=== PATIENT | male | born 1940 | race Caucasian/White ===

== ENCOUNTER → 2017-10-28 12:59 | Outpatient (CLI) | payer MEDICARE, SELFPAY ==
[2017-10-28 14:51] LABS: PSA,Total- Diagnostic 3.06 ng/mL (0.0-4.0)
== END ==
PROVIDERS: Family Provider Family Medicine; PCP Family Medicine; Visit Provider Urology
DX: R97.20 Elevated prostate specific antigen [PSA] (principal)
CPT/HCPCS: 36415; 84153

== ENCOUNTER → 2018-05-03 09:49 | Outpatient (CLI) | payer MEDICARE, SELFPAY ==
[2018-05-03 11:30] LABS: PSA,Total- Diagnostic 3.32 ng/mL (0.0-4.0)
== END ==
PROVIDERS: Family Provider Family Medicine; PCP Family Medicine; Referring Provider Urology; Visit Provider Urology
DX: R97.20 Elevated prostate specific antigen [PSA] (principal)
CPT/HCPCS: 36415; 84153

== ENCOUNTER → 2018-05-31 07:25 | Outpatient (CLI) | payer MEDICARE, SELFPAY ==
--- NOTE | 2018-05-31 08:00 | PET_ITS ---
EXAMINATION: FDG PET CT BRAIN INDICATIONS: A 77-year-old male with reported history of apparent cognitive impairment-memory loss. COMPARISON EXAMINATION: None available. TECHNIQUE: Following the intravenous administration of 11.43 mCi of F-18 deoxyglucose via the left antecubital fossa, multiplanar image acquisitions of the brain obtained at 60 minutes post radiopharmaceutical administration reveal: SERUM GLUCOSE LEVEL: 135 mg/dl. HEIGHT: 65 inches. WEIGHT: 175 lbs FINDINGS: 1. Qualitative, visual analysis demonstrates relatively symmetric, preserved glucose concentration in the bilateral frontal, temporal, occipital and parietal lobes of the cerebral cortex. There is symmetric visualized on the basal ganglia and cerebellar hemispheres. 2. Quantitative analysis utilizing [employer] software demonstrates altered glucose concentration defined in the right and left temporal pole with Z-scores of -2.54 and -1.98 respectively. PET/PET Brain Metabolic Eval IMPRESSION: 1. 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 (Judith, Molecular Imaging and Biology 4:239, 2004). Electronic Signature Jerrod Robison D.O. Electronically Signed: Jerrod Robison DO at 23:06 EST Tel , Service support ,
--- OUTSIDE RECORDS SUMMARY | 2018-07-24 06:00 | XMS RPT_ITS ---
:1940 External Reference #:[id number] Author Organization OHIP Support Name Relationship Address Phone FRANCESCA PATIÑO [address] + [place] [address] KELLI UREÑA Unavailable Unavailable + R Unavailable Unavailable Unavailable FRANCESCA PATIÑO Unavailable [address] + [place] [address] KELLI UREÑA Unavailable . + [place] [address] R Unavailable Unavailable Unavailable FRANCESCA PATIÑO Unavailable [address] + [place] [address] KELLI UREÑA Unavailable Unavailable + [place] [address] R Unavailable Unavailable Unavailable FRANCESCA PATIÑO Unavailable Unavailable + MARIPOSA UREÑA Unavailable Unavailable + FRANCESCA PATIÑO Unavailable [address] + [place] [address] KELLI UREÑA Un[address] + [place] [address] R Unavailable Unavailable Unavailable FRANCESCA PATIÑO Unavailable Unavailable + MARIPOSA UREÑA Unavailable Unavailable + FRANCESCA PATIÑO Unavailable Unavailable + MARIPOSA UREÑA Unavailable Unavailable + FRANCESCA PATIÑO Unavailable Unavailable + MARIPOSA UREÑA Unavailable Unavailable + FRANCESCA PATIÑO Unavailable [address] + [place] [address] KE[address]I UREÑA Un[address] [phone] [place] [address] R Unavailable Unavailable Unavailable FRANCESCA PATIÑO Unavailable [address] + [place] [address] KELLI UREÑA Un[address] [phone] [place] [address] R Unavailable Unavailable Unavailable FRANCESCA PATIÑO Unavailable Unavailable + MARIPOSA UREÑA Unavailable Unavailable + FRANCESCA PATIÑO Unavailable Unavailable + MARIPOSA UREÑA Unavailable Unavailable + Care Team Providers Name Role Phone CHU MANJARREZ MD Attending Unavailable CHU MANJARREZ MD Primary Care Unavailable CHU MANJARREZ MD Attending Unavailable CHU MANJARREZ MD Primary Care Unavailable CHU MANJARREZ MD Attending Unavailable CHU MANJARREZ MD Primary Care Unavailable CHU MANJARREZ MD Attending Unavailable CHU MANJARREZ MD Primary Care Unavailable CHU MANJARREZ MD Attending Unavailable CHU MANJARREZ MD Primary Care Unavailable CHU MANJARREZ MD Attending Unavailable CHU MANJARREZ MD Primary Care Unavailable Guicho Patten Attending Unavailable CHU MANJARREZ Primary Care Unavailable SandorGuicho peck Attending Unavailable CHU MANJARREZ Primary Care Unavailable Addi Dangelo Attending Unavailable Oscar Morales Attending Unavailable CHU MANJARREZ Referring Unavailable SandorGuicho peck Attending Unavailable Sandor, Stuart Referring Unavailable CHU MANJARREZ Primary Care Unavailable Chalo Kirkpatrikcnath SDerrell Attending Unavailable Kaya, Darron SDerrell Referring Unavailable CHU MANJARREZ Primary Care Unavailable PROBLEMS PROBLEMS DATE TYPE CONDITION / CODE ATTENDING STATUS SOURCE 05/03/2018 Unknown G47.33 - Obstructive Oscar Morales Active [facility] sleep apnea (adult) Community (pediatric[facility] Hospital G47.33(ICD-10) Repository 05/03/2018 Unknown I51.7 - Cardiomegaly Oscar Morales [facility] / I51.7(ICD-10) [facility] Repository 05/03/2018 Unknown I26.99 - Other Oscar Morales Active [facility] pulmonary embolism [facility] without acute cor Hospital pulmonale / Repository I26.99(ICD-10) 01/14/2018 Admitting Other amnesia / LOKI BEY, Active [facility] Diagnosis R41.3(ICD-10) [facility] Gall[facility] Repository 12/29/2017 Admitting Type 2 diabetes LOKI BEY, Active [facility] Diagnosis mellitus without [facility] D. [facility] complications / Repository E11.9(ICD-10) 09/30/2017 Admitting Mixed hyperlipidemia LOKI BEY, Active [facility] Diagnosis / E78.2(ICD-10) [facility] Raisa. [facility] Repository 09/30/2017 Admitting Essential (primary) LOKI BEY, Active [facility] Diagnosis hypertension / CHU Raisa. [facility] I10(ICD-10) Repository 06/30/2017 Admitting Urinary tract LOKI BEY, Active [facility] Diagnosis infection, site not CHU D. [facility] specified / Repository N39.0(ICD-10) PROCEDURES PROCEDURES No Procedure Records FoundRESULTS RESULTS PET BRAIN METABOLIC Observed: 05/28/2018 Status: F Source: [place] EVAL 1:03 PM [facility] REPOSITORY [facility] Imaging Services [address] [place] [address] PET Brain Metabolic Eval MR#: [id number] Acct: [id number] Name: ANIBAL PATIÑO Rep #: [id number] : 1940 M 77 From: Jerrod Robison DO PCP: Chu Manjarrez MD Status: REG CLI Study: PET Brain Metabolic Eval Date of Exam: 05/31/18 Exam# [id number] Ordering Dr: Darron Kirkpatrick MD EXAMINATION: FDG PET CT BRAIN INDICATIONS: A 77-year-old male with reported history of apparent cognitive impairment-memory loss. COMPARISON EXAMINATION: None available. TECHNIQUE: Following the intravenous administration of 11.43 mCi of F-18 deoxyglucose via the left antecubital fossa, multiplanar image acquisitions of the brain obtained at 60 minutes post radiopharmaceutical administration reveal: SERUM GLUCOSE LEVEL: 135 mg/dl. HEIGHT: 65 inches. WEIGHT: 175 lbs FINDINGS: 1. Qualitative, visual analysis demonstrates relatively symmetric, preserved glucose concentration in the bilateral frontal, temporal, occipital and parietal lobes of the cerebral cortex. There is symmetric visualized on the basal ganglia and cerebellar hemispheres. 2. Quantitative analysis utilizing [employer] software demonstrates altered glucose concentration defined in the right and left temporal pole with Z-scores of -2.54 and -1.98 respectively. PET/PET Brain Metabolic Eval IMPRESSION: 1. 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 (Adela and Sarita, Molecular Imaging and Biology 4:239, 2004). Electronic Signature Jerrod Robison D.O. Electronically Signed: Jerrod Robison DO at 23:06 EST Tel , Service support , CC: Babar Kirkpatrick MD; Chu Manjarrez MD Catering Driver: Signed PULMONARY VISIT REPORT Observed: 05/03/2018 Status: F Source: [place] 10:48 AM [facility] REPOSITORY [facility] [address] [place] [address] OFFICE VISIT Date of Service: 05/03/18 MR#: [id number] Acct: [id number] Name: ANIBAL PATIÑO Rep #: [id number] : 1940 Provider: Oscar Morales MD Age/Sex: 77/M Location: [facility] Status: Signed Assessment AND Plan Problems 1. GARRY (obstructive sleep apnea) G47.33 2. 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 Multiple pulmonary emboli I26.99 Plan Patient appears to be doing well overall. No acute issues leading to a need for a repeat titration at this time. Patient's residual AHI and leak are well controlled. Did stress to the patient the importance of maintaining weight at current level. Patient understands that weight gain can lead to increased CPAP setting requirements. Also reviewed with the patient the signs and symptoms of pulmonary embolism and DVT. Patient voiced understanding. Continue current therapy. Call with any signs or symptoms of DVT/PE Medications New: Discontinued: Plan Detail Follow Up 1 Year (BWA) HPI 1 Y FU: Chief Complaint: Routine follow-up Details: Patient is a 77-year-old male, currently under the care of Dr. Manjarrez, who presents for evaluation secondary to routine follow-up of GARRY. Since last visit, patient denies any ER visits, hospitalizations or prednisone burst. Patient feels subjectively unchanged compared to previous visit. Patient reports he has been compliant with his CPAP therapy. Patient states that he recently had a weekend with a squirrel hunting and his machine broke leading to noncompliance for the weekend. Patient states that he woke up several times overnight, but felt that he was doing okay during the day. Patient states his leak is well controlled. Patient denies any epistaxis, dry mouth or hoarseness complicating current therapy. Patient does take a 57-40-pksmiy nap on a daily basis, but states he does not wear his CPAP with these naps. Patient estimates one episode of nocturia per night. Patient has had a mild increase in weight. Patient states he does attempt to watch his diet. Patient feels his dyspnea on exertion is grossly unchanged compared to previous. Patient does report some dyspnea with walking up hills associated with squirrel hunting. Patient overall feels that his dyspnea on exertion is unchanged compared to previous. Patient denies any bleeding complications such as hemoptysis or melena. Patient is no longer on anticoagulation. Documentation personally reviewed with the patient Compliance report (March 2018): Compliant 93% of days for an average of 8 hours 2 minutes on CPAP 8 cm of water with a residual AHI of 0.4 and well-controlled leak HPI Comments Details: Intake Vital Signs05/03/18 Height 5 ft 5 in 05/03/18 Weight: 80.739 kg Intake Visit Reasons: 1 Y FU American[employer] Teacher Required: No DME Vendor: John Accompanied by: Is patient in pain?: No Allergies ciprofloxacin [From Cipro] Allergy (Verified 05/03/18 08:00) Rash lisinopril Allergy (Verified 05/03/18 08:00) Swelling metronidazole Allergy (Verified 05/03/18 08:00) Rash Penicillins [PCN] Allergy (Verified 05/03/18 08:00) Rash sulfamethoxazole Allergy (Verified 05/03/18 08:00) Rash Medications Toombs 650 mg PO DAILY 09/16/16 [History Confirmed 05/03/18] Amlodipine [Norvasc] 5 mg PO DAILY 09/16/16 [History Confirmed 05/03/18] Glucosamine/Chondroitin A/MSM [Fqciswcyvqc-Rpoibnwdiyq-IUG Tb] 1 ea PO TID 09/16/16 [History Confirmed 05/03/18] Tamsulosin HCl [Flomax] 0.8 mg PO DAILY 09/16/16 [History Confirmed 05/03/18] Turmeric/Turmeric Ext/Pepr Ext [Turmeric Complex 500 mg Cap] 2 ea PO DAILY 09/16/16 [History Confirmed 05/03/18] Ubidecarenone [Coq10] 50 mg PO DAILY 09/16/16 [History Confirmed 05/03/18] Acetaminophen [Tylenol Tablet] 650 mg PO Q6H PRN PRN #0 tab 09/18/16 [Rx Confirmed 05/03/18] Finasteride [Proscar] 5 mg PO DAILY #30 tab 09/18/16 [Rx Confirmed 05/03/18] omega-3 fatty acids 1,000 mg capsule 1,000 mg PO DAILY 03/03/18 [History Confirmed 05/03/18] aspirin 81 mg tablet,delayed release 81 mg PO DAILY 05/03/18 [History Confirmed 05/03/18] diclofenac 1 % topical gel 2 g TOPICAL ONCE PRN 05/03/18 [History Confirmed 05/03/18] hydrochlorothiazide 25 mg tablet 25 mg PO DAILY 05/03/18 [History Confirmed 05/03/18] vitamin B complex tablet 1 tab PO DAILY 05/03/18 [History Confirmed 05/03/18] PFSH Medical History Sleep apnea (Acute) hx melanoma (Acute) Surgical History Varicocele (Acute) history of left hand surgery (Acute) history of right thumb surgery (Acute) history or right knee scrape (Acute) Family History Mother Cancer Social History Smoking Status: Former smoker second hand exposure: No alcohol intake: never substance use type: does not use what type of physical activity do you participate in: none Review of Systems Const CONSTITUTIONAL: Positive fatigue; negative anorexia, body ache, chills, daytime sleepiness, fever(s), night sweats, oral thrush, stops breathing during sleep, weight loss, sleeping in chair, weight loss, weight gain, frequent colds, seasonal allergies, other, headache(s) or orthopnea EETM Ear Nose Throat Mouth: Positive hearing normal and nasal discharge; negative hard of hearing, hoarseness, dry mouth in morning, change in vision, itchy eyes, eye pain, swallowing Difficulty, ear pain, nose bleed, headache(s), mouth pain, nasal congestion, post nasal drip, sinus pain, sinus pressure, sore throat or other Cardio Cardiovascular: Positive edema; negative chest pain, chest pain at rest, chest pain with activity, irregular heart rhythm, shortness of breath when lying down, palpitations, murmur or other Resp Respiratory: Positive as per HPI; negative shortness of breath, pain with cough, wheezing, chest congestion, cough, chest tightness, pain on inspiration, inhalers, increase use of rescue inhalers, snoring, apnea or other Gastro Gastrointestional: Negative bloody stools, change in appetite, difficulty swallowing, reflux, hematemesis, melena stool, loose stool, constipation or other Genitourinary: Positive nocturia; negative blood in urine, pain with urination or other Musc Musculoskeletal: Negative body pain, back pain, neck pain or other Skin/Breast Skin/Breast: Negative dry skin, itching, rash, unusual bruising, breast lump or other Neuro Neurological: Negative restless legs, confusion, weakness or other Psych Psychocological: Negative abnormal sleep pattern, anxiety, thoughts of hurting self/others, hopelessness or other Lymph Lymphatic: Negative easy bleeding, easy bruising, swollen lymph nodes or other Exam Const Constitutional: Positive conversant, cooperative, in no acute respiratory distress, healthy appearing, well developed, well nourished, good hygiene and obese; negative wearing supplemental oxygen, dyspenic or frail appearing Head Head: Positive normocephalic and atraumatic; negative cyanosis of lips/distal nose, frontal sinus tenderness or maxillary sinus tenderness Eyes Eye: Positive clear conjunctiva; negative nystagmus, scleral abnormality or cataract present Ears Ear: Positive hearing normal and external ears normal; negative hard of hearing Nose Nose: Positive external nose normal, septum normal and no nasal discharge; negative epistaxis or nasal polyp Mouth Mouth: Positive oral mucosae normal, no lesions and posterior oropharynx is adequate; negative post nasal drip, malodorous breath or oral thrush present Mallampati Score: II: Mallampati Score Neck Neck: Positive normal visual inspection, full ROM and trachea midline; negative lymphadenopathy or JVD Chest Wall Chest: Positive normal inspection of the chest and symmetric chest movement; negative crepitus or tenderness Resp lung sounds: Positive clear to auscultation, good air exchange, normal expiratory time and normal respiratory effort; negative wheezes, rhonchi, rales, use of accessory muscles, diminished, dullness to percussion or wheeze present on forced exhalation Cardio Cardiac: Positive regular rate, regular rhythm, S1 normal and S2 normal; negative murmur, rub or gallop GI GI: Positive normal to inspection, normal bowel sounds and obese; negative distended, ascites or epigastric tenderness Genitourinary: Positive deferred Musc Musculoskeletal: Positive steady gait; negative using an assistive device for ambulation, kyphosis or scoliosis Skin Pulmonary Skin Exam: Positive intact; negative rash, lesion, ulcers, erythema or dermal atrophy Pulses Pulse: Yes radial pulses present Extremities Extremities: Yes capillary refill normal, No clubbing, No cyanosis, No edema, No stasis dermatitis ALINE hose in place Neuro Neurologic: Yes conversant, Yes no focal neuro deficits, Yes normal concentration, Yes understands questions, Yes cooperative, Yes normal coordination, Yes normal cognition Lymph Lymphatic: No lymphadenopathy Psych Appearance: Positive grossly normal Mental Status: Positive mental status grossly normal Mood: Positive congruent mood Affect: Positive normal affect Coding Level of Care Code Off vis,est,level 3 Diagnoses GARRY (obstructive sleep apnea) G47.33 Right ventricular dilation, 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 chemistry system. Values obtained with different assay methods cannot be used interchangably. When changing PSA assays in the course of monitoring a patient, additional sequential testing should be carried out to confirm baseline values. Performed By: #### L501.9940 #### [facility] [address] [place], [place], [address] .GFR Collected: 04/07/2018 Status: F Source: [facility] 8:24 AM [facility] REPOSITORY TYPE CODE TESTS RESULT OUT OF REFERENCE UNITS RANGE LAB GFRAA(LOINC ml/min/1.73 ) sqm GFR 80 [place] Result Comment: GFR Population mean for , Non- Americans Ages 20-29 = 116 mL/min/1.73 sq.m. Ages 30-39 = 107 mL/min/1.73 sq.m. Ages 40-49 = 99 mL/min/1.73 sq.m. Ages 50-59 = 93 mL/min/1.73 sq.m. Ages 60-69 = 85 mL/min/1.73 sq.m. Ages 70+ = 75 mL/min/1.73 sq.m. Chronic Kidney Disease: Less than 60 mL/min/1.73 square meters End Stage Renal Disease: Less than 15 mL/min/1.73 square meters LAB GFRNO(LOINC) ml/min/1.73sqm GFR Non- 66 Result Comment: GFR Population mean for , Non- Americans Ages 20-29 = 116 mL/min/1.73 sq.m. Ages 30-39 = 107 mL/min/1.73 sq.m. Ages 40-49 = 99 mL/min/1.73 sq.m. Ages 50-59 = 93 mL/min/1.73 sq.m. Ages 60-69 = 85 mL/min/1.73 sq.m. Ages 70+ = 75 mL/min/1.73 sq.m. Chronic Kidney Disease: Less than 60 mL/min/1.73 square meters End Stage Renal Disease: Less than 15 mL/min/1.73 square meters Performed By: #### GFR, LIPID, CMP #### [facility] [address] [place] [address] CMP Collected: 04/07/2018 Status: F Source: [facility] 8:24 AM [facility] REPOSITORY TYPE CODE TESTS RESULT OUT OF REFERENCE UNITS RANGE LAB GLU(LOINC) 83-110 mg/dL Glucose High Level 129 LAB NA(LOINC) 136-145 mmol/L Sodium Level 139 LAB K(LOINC) 3.5-5.1 mmol/L Potassium Level 3.6 LAB CL(LOINC) 98-107 mmol/L Chloride 100 LAB CO2(LOINC) 23-31 mmol/L CO2 High 34 LAB EBAL(LOINC mEq/L ) Electrolyte Balance 5.0 LAB BUN(LOINC) 7-18 mg/dL BUN 14 LAB CRE(LOINC) 0.70-1.30 mg/dL Creatinine Lvl (s) 1.09 LAB BC(LOINC) 7-27 ratio BUN/Creatinine 13 Ratio LAB CA(LOINC) 8.4-10.2 mg/dL Calcium Lvl 9.2 LAB PROT(LOINC 6.4-8.2 G/dL ) Total Protein 6.7 LAB ALB(LOINC) 3.4-4.8 G/dL Albumin Level 3.7 LAB GLB(LOINC) G/dL Globulin 3.0 LAB AG(LOINC) 1.1-2.5 ratio A/G Ratio 1.2 LAB BILT(LOINC 0.2-1.0 mg/dL ) Bili Total 0.7 LAB AP(LOINC) 40-135 U/L Alk Phos 68 LAB AST(LOINC) 10-40 U/L AST/SGOT 17 LAB ALT(LOINC) 10-35 U/L ALT/SGPT High 37 Performed By: #### GFR, LIPID, CMP #### [place] [address] LIPID Collected: 04/07/2018 Status: F Source: [facility] 8:24 AM [facility] REPOS[facility] TYPE CODE TESTS RESULT OUT OF REFERENCE UNITS RANGE LAB CHOL(LOINC 0-200 mg/dL ) Cholesterol High 229 Result Comment: Cholesterol Reference Interval: Less than 200 Desirable 200-239 Borderline high risk 240 and above High risk LAB TRIG(LOINC) 0-150 mg/dL Triglycerides High 194 Result Comment: Triglyceride Reference Interval: Less than 150 Normal 150-199 Borderline high risk 200-499 High risk 500 or higher Very high risk LAB HD(LOINC) 40-60 mg/dL HDL Cholesterol 40 LAB LDL(LOINC) 0-130 mg/dL LDL High Cholesterol 150 Performed By: #### GFR, LIPID, CMP #### [address] [place], [place] [address] CT HEAD OR BRAIN W/O Observed: 02/09/2018 Status: F Source: [facility] 10:00 AM [facility] REPOSITORY ORIGINAL CT HEAD OR BRAIN W/O CONTRAST CLINICAL STATEMENT: MEMORY LOSS. TECHNIQUE: Axial CT images from skull base to vertex without IV contrast. This exam was performed according to our departmental dose optimization program, and includes the following measures where appli cable: automated exposure control, adjustment of the mAs and/or kVp according to patient size and/or exam, and an iterative reconstruction algorithm. COMPARISON: MRI brain 08/21/2016 FINDINGS: There is no intracranial hemorrhage, mass, mass effect, or abnormal extra-axial fluid collection. No CT evidence for acute territorial infarct. Scattered foci of white matter hypoattenuation are noted in the cerebral white matter, nonspecific but compatible with mild-moderate chronic microvascular angiopathy. The density in the larger dural rita ous sinuses is grossly normal. Atherosclerotic calcifications are present in the cavernous carotid arteries bilaterally. There is proportionate enlargement of the ventricular system and cortical sulci, compatible with mild parenchymal volume loss. The skull base and calvarium demonstrate no abnormality. The included paranasal sinuses and mastoid air cells are clear. IMPRESSION: No acute intracranial abnormality. Mild brain parenchymal volume loss with mild to moderate chronic microvascular angiopathy. I have personally reviewed the images of this examination and agree with the resident's findings and interpretation. Interpreted By: Duke Hidalgo MD Preliminary Report By: Maciel Rothman MD Electronically Signed By: Duke Hidalgo MD Dictated Date: 02/09/2018 10:37:08 AM Prelim Date: 02/09/2018 11:42:38 AM Sign Date: 02/09/2018 12:55:15 PM TSH Collected: 01/14/2018 Status: F Source: [facility] 8:59 AM [facility] REPOSITORY TYPE CODE TESTS RESULT OUT OF RANGE REFERENCE UNITS LAB TSH(LOINC) 0.27-4.20 mcIU/mL TSH 2.60 Performed By: #### TSH #### [place] [id number] [place], [place] [address] #### B12, TESTO #### [address] [address] TESTO Collected: 01/14/2018 Status: F Source: [facility] 8:59 AM [facility] REPOSITORY TYPE CODE TESTS RESULT OUT OF REFERENCE UNITS RANGE LAB TESTO(LOIN 241.0-827.0 ng/dL C) Testosterone Lvl 372.9 Performed By: #### TSH #### [facility] [address] [place], [place] [address] #### B12, TESTO #### [facility] [address] [place] [address] B12 Collected: 01/14/2018 Status: F Source: [facility] 8:59 AM [facility] REPOSITORY TYPE CODE TESTS RESULT OUT OF REFERENCE UNITS RANGE LAB B12(LOINC) 211-911 pg/mL Vitamin B12 424 Lvl Performed By: #### TSH #### [place] [address] [place], [place] [address] #### B12, TESTO #### [facility] [address] [place] [address] CMP Collected: 12/29/2017 Status: F Source: [facility] 9:10 AM [facility] REPOSITORY TYPE CODE TESTS RESULT OUT OF REFERENCE UNITS RANGE LAB GLU(LOINC) 83-110 mg/dL Glucose High Level 134 LAB NA(LOINC) 136-146 mEq/L Sodium Level 142 LAB K(LOINC) 3.5-5.1 mEq/L Potassium Level 4.4 LAB CL(LOINC) 98-107 mEq/L Chloride 100 LAB CO2(LOINC) 23-31 mEq/L CO2 High 33 LAB EBAL(LOINC mEq/L ) Electrolyte Balance 9.0 LAB BUN(LOINC) 7.0-18.0 mg/dL BUN 11.6 LAB CRE(LOINC) 0.6-1.2 mg/dL Creatinine Lvl (s) 0.9 LAB BC(LOINC) 7-27 ratio BUN/Creatinine 13 Ratio LAB CA(LOINC) 8.4-10.2 mg/dL Calcium Lvl 9.6 LAB PROT(LOINC 6.0-8.3 G/dL ) Total Protein 6.9 LAB ALB(LOINC) 3.4-4.8 G/dL Albumin Level 4.5 LAB GLB(LOINC) G/dL Globulin 2.4 LAB AG(LOINC) 1.1-2.5 ratio A/G Ratio 1.9 LAB BILT(LOINC 0.2-1.0 mg/dL ) Bili Total 0.5 LAB AP(LOINC) 40-135 IU/L Alk Phos 77 LAB AST(LOINC) 10-40 IU/L AST/SGOT 17 LAB ALT(LOINC) 10-35 IU/L ALT/SGPT 21 Performed By: #### CMP, GFR #### [address] [address] .GFR Collected: 12/29/2017 Status: F Source: [facility] [employer] 9:10 AM [facility] REPOSITORY TYPE CODE TESTS RESULT OUT OF REFERENCE UNITS RANGE LAB GFRAA(LOINC ml/min/1.73 ) sqm GFR >60 Trin[place] Result Comment: GFR Population mean for , Non- Americans Ages 20-29 = 116 mL/min/1.73 sq.m. Ages 30-39 = 107 mL/min/1.73 sq.m. Ages 40-49 = 99 mL/min/1.73 sq.m. Ages 50-59 = 93 mL/min/1.73 sq.m. Ages 60-69 = 85 mL/min/1.73 sq.m. Ages 70+ = 75 mL/min/1.73 sq.m. Chronic Kidney Disease: Less than 60 mL/min/1.73 square meters End Stage Renal Disease: Less than 15 mL/min/1.73 square meters LAB GFRNO(LOINC) ml/min/1.73sqm GFR Non- >60 Result Comment: GFR Population mean for , Non- Americans Ages 20-29 = 116 mL/min/1.73 sq.m. Ages 30-39 = 107 mL/min/1.73 sq.m. Ages 40-49 = 99 mL/min/1.73 sq.m. Ages 50-59 = 93 mL/min/1.73 sq.m. Ages 60-69 = 85 mL/min/1.73 sq.m. Ages 70+ = 75 mL/min/1.73 sq.m. Chronic Kidney Disease: Less than 60 mL/min/1.73 square meters End Stage Renal Disease: Less than 15 mL/min/1.73 square meters Performed By: #### CMP, GFR #### [address] [address] PSA,TOTAL- DIAGNOSTIC Collected: 10/28/2017 Status: F Source: [place] 1:07 PM [facility] REPOSITORY TYPE CODE TESTS RESULT OUT OF RANGE REFERENCE UNITS LAB L501.9940 0.0-4.0 ng/mL PSA, Normal DIAGNOSTIC 3.06 Result Comment: This test was performed using the TPSA assay method for the [employer] chemistry system. Values obtained with different assay methods cannot be used interchangably. When changing PSA assays in the course of monitoring a patient, additional sequential testing should be carried out to confirm baseline values. Performed By: #### L501.9940 #### [facility] [address] [place], [address] [facility] Collected: 09/30/2017 Status: F Source: [facility] 8:18 AM [facility] REPOSITORY TYPE CODE TESTS RESULT OUT OF REFERENCE UNITS RANGE LAB 1547-9 83-110 mg/dL GLUCOSE High 142 LAB NA(LOINC) 136-146 mEq/L Sodium Level 138 LAB K(LOINC) 3.5-5.1 mEq/L Potassium Level 3.5 LAB CL(LOINC) 98-107 mEq/L Chloride 98 LAB CO2(LOINC) 23-31 mEq/L CO2 31 LAB EBAL(LOINC mEq/L ) Electrolyte Balance 9.0 LAB BUN(LOINC) 7.0-18.0 mg/dL BUN 16.6 LAB CRE(LOINC) 0.6-1.2 mg/dL Creatinine Lvl (s) 1.0 LAB BC(LOINC) 7-27 ratio BUN/Creatinine 17 Ratio LAB CA(LOINC) 8.4-10.2 mg/dL Calcium Lvl 9.4 LAB PROT(LOINC 6.0-8.3 G/dL ) Total Protein 6.4 LAB ALB(LOINC) 3.4-4.8 G/dL Albumin Level 4.1 LAB GLB(LOINC) G/dL Globulin 2.3 LAB AG(LOINC) 1.1-2.5 ratio A/G Ratio 1.8 LAB BILT(LOINC 0.2-1.0 mg/dL ) Bili Total 0.4 LAB AP(LOINC) 40-135 IU/L Alk Phos 62 LAB AST(LOINC) 10-40 IU/L AST/SGOT 20 LAB ALT(LOINC) 10-35 IU/L ALT/SGPT 28 Performed By: #### LIPID, GFR, CMP #### [place] [address] [place], [place] [address] .GFR Collected: 09/30/2017 Status: F Source: [employer] 8:18 AM [facility] REPOSITORY TYPE CODE TESTS RESULT OUT OF REFERENCE UNITS RANGE LAB GFRAA(LOINC ml/min/1.73 ) sqm GFR 87 Trin[place] Result Comment: GFR Population mean for , Non- Americans Ages 20-29 = 116 mL/min/1.73 sq.m. Ages 30-39 = 107 mL/min/1.73 sq.m. Ages 40-49 = 99 mL/min/1.73 sq.m. Ages 50-59 = 93 mL/min/1.73 sq.m. Ages 60-69 = 85 mL/min/1.73 sq.m. Ages 70+ = 75 mL/min/1.73 sq.m. Chronic Kidney Disease: Less than 60 mL/min/1.73 square meters End Stage Renal Disease: Less than 15 mL/min/1.73 square meters LAB GFRNO(LOINC) ml/min/1.73sqm GFR Non- >60 Result Comment: GFR Population mean for , Non- Americans Ages 20-29 = 116 mL/min/1.73 sq.m. Ages 30-39 = 107 mL/min/1.73 sq.m. Ages 40-49 = 99 mL/min/1.73 sq.m. Ages 50-59 = 93 mL/min/1.73 sq.m. Ages 60-69 = 85 mL/min/1.73 sq.m. Ages 70+ = 75 mL/min/1.73 sq.m. Chronic Kidney Disease: Less than 60 mL/min/1.73 square meters End Stage Renal Disease: Less than 15 mL/min/1.73 square meters Performed By: #### LIPID, GFR, CMP #### [place] [address] [address] LIPID Collected: 09/30/2017 Status: F Source: [place] [employer] 8:18 AM [facility] REPOSITORY TYPE CODE TESTS RESULT OUT OF REFERENCE UNITS RANGE LAB CHOL(LOINC 131-200 mg/dL ) Cholesterol High 259 Result Comment: Cholesterol Reference Interval: Less than 200 Desirable 200-239 Borderline high risk 240 and above High risk LAB TRIG(LOINC) 40-150 mg/dL Triglycerides 104 Result Comment: Triglyceride Reference Interval: Less than 150 Normal 150-199 Borderline high risk 200-499 High risk 500 or higher Very high risk LAB HD(LOINC) 35-90 mg/dL HDL Cholesterol 45 Result Comment: HDL Reference Interval: Less than 40 Low - high risk 60 or above Optimal/lowers risk LAB LDL(LOINC) 0-130 mg/dL LDL High Cholesterol 193 Result Comment: LDL is a calculated result and requires a 12-hr fast. LDL Reference Interval: Less than 100 Optimal 100-129 Near or above optimal 130-159 Borderline high risk 160-189 High risk 190 and above Very high risk Performed By: #### LIPID, GFR, CMP #### [address] [address] Observed: 06/30/2017 Status: F Source: [facility] 10:12 AM [facility] REPOSITORY . MICRO - Microbiology PROCEDURE: Urine Culture [*1] SOURCE: Urine BODY SITE: COLLECTED DATE/TIME: 06/30/2017 10:12 EST RECEIVED DATE/TIME: 07/01/2017 16:33 EST START DATE/TIME: 07/01/2017 16:34 EST FREE TEXT SOURCE: FINAL REPORTS Final Report [] Verified Date/Time/Personnel: 07/03/2017 06:57 EST No growth at 48 hours. PRELIMINARY REPORTS Preliminary Report [] Verified Date/Time/Personnel: 07/02/2017 07:30 EST No growth to date Performing Locations *1: This test was performed at: [facility], [address] [place] [address], [address] [place] [address] Performed By: #### CUR #### [place] [address] ALLERGIES ALLERGIES DATE TYPE / CODE NAME / CODE REACTION SEVERITY SOURCE 05/03/2018 Drug Penicillins/ Rash Unknown [facility]160 [id number](R [facility] [address]506(SNOMED XNORM) Repository CT) 05/03/2018 Drug lisinopril/F Swelling Unknown [place]/4160 [id number](RX Hospital [address]2710(SNOMED NORM) Repository CT) 05/03/2018 Drug sulfamethoxa Rash Unknown [facility]/4160 zole/[id number] Hospital [facility](SNOMED 827(RXNORM) Repository CT) 05/03/2018 Drug ciprofloxaci Rash Unknown [facility]/4160 n/[id number] [facility](SNOMED (RXNORM) Repository CT) 05/03/2018 Drug metronidazol Rash Unknown [facility] Allergy/4160 e/[id number] [facility](SNOMED (RXNORM) Repository CT) ENCOUNTERS ENCOUNTERS ADMIT/DISCHARGE ACCOUNT NUMBER ADMITTING ENCOUNTER LOCATION SOURCE CLASS 05/31/2018 [id number] Ambulatory [facility] ding:ONC Repository 05/03/2018/05/03/20 [id number] Ambulatory BMSBuilding: [place] [facility] Repository 05/03/2018 [id number] Ambulatory [facility] ding:LAB Repository 04/07/2018/04/11/20 [id number] Ambulatory [facility] [place] [address] [place] [address] ding:[facility] Repository 03/03/2018 [id number] Ambulatory [facility] Repository 02/09/2018/02/10/20 [id number] Ambulatory [place] [address] [place] [address] ding:RAD [facility] Repository 01/14/2018/01/19/20 [id number] Ambulatory [place] [address] [place] [address] ding:DROP [facility] Repository 12/29/2017/01/03/20 [id number] Ambulatory ROSAL[place] [address] [place] [address] ding:[facility] Repository 10/28/2017 [id number] Ambulatory [facility] ding:LAB.FUT Repository URE 10/19/2017 [id number] Ambulatory [facility] ding:LAB.FUT Repository URE 09/30/2017/10/05/19 [id number] Ambulatory ROSALVA [place] [address] [place] [address] ding:DROP [facility] Repository 06/30/2017/07/04/19 [id number] Ambulatory ROSAL[place] [address] [place] [address] ding:[facility] Repository PAYERS PAYERS ENCOUNTER GUARANTOR PAYER SUBSCRIBER SOURCE 05/31/2018 ANIBAL Schuster Primary ANIBAL [place] [id number] Insurance:[place] HO[place]OB: [facility] [id number] [place] MEDIC[place] Repository [address]Tww: (330) Number: [phone] () [id number] Date: [address] [address]ZQ: 05/31/2018 Secondary NOT GIVENUNK [place] Insurance:SELF PAY [facility] Number: Effective Repository Date:2018-05-28 05/03/2018 ANIBAL Schuster Primary ANIBAL Schuster [place] [id number] Insurance:[place] [facility] HE[facility] SERVICESDOB: [facility] [id number] [facility] [place] MEDICAREPolicy Repository [address]Aei: (330) Number: [phone] () [id number] Date: [address] [address]KO: 05/03/2018 Secondary NOT GIVENUNK [place] Insurance:SELF PAY [facility] Number: Effective Repository Date:2018-03-03 05/03/2018 ANIBAL Schuster Primary ANIBAL Schuster [place] [id number] Insurance:[place] HO[place]DOB: [facility] [id number] [facility] [place] MEDICAREPolicy Repository [address]Qxv: (330) Number: [phone] () [id number] Date: PSYCHIATRIC [address], [place] [address]RM: 05/03/2018 Secondary NOT GIVENUNK [place] Insurance:SELF PAY [facility] Number: Effective Repository Date:2018-05-03 04/07/2018 ANIBAL Schuster Primary ANIBAL Schuster [facility] HOOVERDOB: [facility] THP MEDICAREPolicy [id number] Repository [place] Number: [place], [place] [id number] [place], [place] [address]Bqz: (330) Date:2018-04-07 [id number]: (HP) [id number] Name:[id number] NATIONAL ()Tel: ([address] 000-0000 (WP) [place], [place] [address]LF: 03/03/2018 [facility] Primary [id number] Insurance:[facility] [id number] Hospital [place] MEDICAREPolicy Repository [address]Wdk: 330) Number: [phone] () [id number] Date: [address] [address]AW: 03/03/2018 Secondary NOT GIVENUNK [place] Insurance:SELF PAY [facility] Number: Effective Repository Date:2018-03-03 02/09/2018 [facility]ARE HOOVERDOB: [facility] THP MEDICAREPolicy [id number] Repository [place] Number: [place], [place] [id number] [place], [place] [address]Uoh: (330) Date:2018-02-08 [address]Hld: (HP) [id number] Name:[id number] NATIONAL ()Tel: (000) RO[address] 000-0000 (WP) [place], [place] [address]QQ: 01/14/2018 [facility] Insurance:[facility]URECARE HOOVERDOB: [facility] THP MEDICAREPolicy [id number] Repository [place] Number: [place], [place] [id number] [place], [place] [address]Pbo: (330) Date:2018-01-14 [address]Cih: [id number] [phone] (HP)Tel: (999) Name:[id number] NATIONAL () (WP) RO[address] 000-0000 (WP) [place], [place] [address]CC: 12/29/2017 ANIBAL W Primary ANIBAL W [facility]: [facility] HOSOUTHEAST[facility]IOR[facility] HEALTH SERVICESDOB: [facility] MEDICAREPolicy [id number] Repository [facility] Number: [address] [place], [place] [id number] [place], [place] [address]Qbp: (330) Date:2017-12-2953206Uwa: [id number] [phone] (HP)Tel: (999) Name:[id number] [facility] () (WP) RO[address] 000-0000 (WP) [place], [place] [address]AC: 10/28/2017 Anibal Primary Anibal [place] [id number] Insurance:[facility]: [place] [id number] [place] MEDICAREPolicy Repository [address]Cym: (330) Number: [phone] () [id number] Date: [address] [address]HZ: 10/28/2017 Secondary NOT GIVENUNK [place] Insurance:SELF PAY [facility] Number: Effective Repository Date:2017-10-28 10/19/2017 Anibal Primary Anibal [place] [id number] Insurance:[place]OB: [place] [id number] [place] MEDICAREPolicy Repository [address]Mzd: (330) Number: [phone] () [id number] Date: [facility] [address] [place] [address]ON: 10/19/2017 Secondary NOT GIVENUNK [place] Insurance:SELF PAY [facility] Number: Effective Repository Date:2017-10-19 09/30/2017 [facility] Insurance:[facility]URECARE HOOVERDOB: [facility] THP MEDICAREPolicy [id number] Repository [place] Number: [place], [place] [id number] [place], [place] [address]Emt: (330) Date:2017-09-30Tel: [id number] [phone] (HP)Tel: (999) Name:[id number] NATIONAL (HP) (WP) RO[address] 000-0000 (WP) [place], [place] [address]PU: 06/30/2017 [facility]: Insurance:SECURECARE HOOVERDOB: [facility] THP MEDICAREPolicy [id number] Repository [place] Number: [place], [place] [id number] [place], [place] [address]Ywa: (330) Date:2017-06-30Tel: [id number] [phone] (HP)Tel: (999) Name:[id number] NATIONAL (HP) (WP) ROAD [address] 000-0000 (WP) [place], [place] [address]KE:
== END ==
PROVIDERS: Family Provider Family Medicine; PCP Family Medicine; Referring Provider Psychiatry & Neurology Neurology; Visit Provider Psychiatry & Neurology Neurology
DX: R41.3 Other amnesia (principal); Z85.828 Personal history of other malignant neoplasm of skin
CPT/HCPCS: 78608; A9552

== ENCOUNTER 2019-08-05 10:30 | Outpatient (RCR) | payer MEDICARE, SELFPAY ==
[2019-05-16 07:43] VITALS: BMI 29.1
--- NOTE | 2019-07-13 16:47 | HP.PTEVAL_ITS ---
Patient's Visit Information SHERYL PATIÑO II is a 78 year old M referred to Physical Therapy by Chu Sims with a diagnosis of Right Partial Knee Replacement. Date of Evaluation: 07/13/19 Physical Therapist: Yoana Daley DPT - Visit Plan Frequency: 1x/Week Duration: 6 Weeks Plan: 1x with PT next week to re-assess and progress HEP - Subjective Findings: Right partial knee replacement 07/[address] Sims at [facility]. Stayed overnight and then headed home. Single story home with his who is able to help as needed. Daughter is staying with them for now. 2 or 3 stairs with a handrail on both side. No problems getting in/out. Fully I prior to surgery. Patient reports no pain in the knee but does report that he can feel pressure. Worst: 3/10 Agg: bending or fully straightening. Eases: moving the knee into a different position. They gave him a block and put him on twilight. Reports the pain is more streching and tightness. No radiating pain. Has a dressing on it- will call to see how long he can leave it on. Sleep: once or twice- sleeping in bed. 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 Meds: aeroscept, tamsulosin HCL, Ziralto, finasteride, amlodipine, hydrochlorothiside, donepezil HCL, diclofenac sodium, Tramadol and Tylenol, Celebrex- has not needed PRN Narcotic. PMHx: Hx or PE and DVTHTN, prostate issues, early stages dementia. - Objective Posture: good throughout treatment session. Gait: slightly deviated- uses FWW but able to ambulate without. Stairs: asc/desc 8 recip with 1 HR- decreased c ontrol with descent. HR/TR: able with poor balance with TR backwards. SLS: 3 sec then required UE A. Observation: incision under dressing- no s/s of infection. ROM: 0-120 degrees with discomfort at end range. Strength: Ankle: 5/5, Knee: 4+/5, Hip: 4+/5, Core: fair plus- SLR no lag. Flex: HS: moderate, Gastroc: moderate - Goals Goal 1:: Patient will be I with HEP and progression Goal Time Frame: 4-6 Weeks Goal 2:: Patient will asc/desc 8 stairs recip with 1 hR and good control Goal Time Frame: 4-6 Weeks Goal 3:: Andrew will return to all normal ADL's with no pain Goal Time Frame: 4-6 Weeks - Rehabilitation Potential Physical Therapy Diagnosis: Patient presents with hypomobility- he has decreased ROM, strength, flex and muscular endurance s/p partial TKR. Rehabilitation Potential: Good - Anticipated Interventions Patient/Client Instruction: Educate patient on: Benefits of Fitness Program Therapeutic Exercise to Include: Strength training, Endurance training, Balance training, Agility training, Body mechanics, Postural training, Flexibilty training, Gait and locomotor training, Passive ROM, Active ROM, Dynamic Lumbar Stabilization For the Purpose of:: To improve muscle performance and motor function TENS: Yes Cryotherapy (ice pack, ice massage): Yes Thermo therapy (hot pack): Yes Ultrasound (thermal/non thermal): No Thank you for the opportunity to evaluate your patient. For Medicare and Medicare HMO plans, please review the plan of care and approve it. It will need to be FAXED BACK to us at [phone] for Medicare purposes. For Medicare only, by signing this I certify the plan of care. Please let me know if there are questions or concerns regarding this plan of care. Physician Signature: Date:
--- NOTE | 2019-08-05 10:51 | HP.PTDCSUM ---
HP - PT D/C Summary It has been my pleasure to treat SHERYL PATIÑO II under orders from Chu Sims, for the diagnosis of Right Partial Knee Replacement for a total of 4 visit(s). Discharge Date: Please see the following information for a summary of their discharge status. - Subjective Subjective: Patient reports that he is back to all of his normal activities. He is riding a bike daily, doing exercises and going up/down stairs. He feels comfortable doing anything he needs to do- his daughter tries to limit him. - Overall Improvement % Improvement: 95 - Objective Objective/Function: Posture: good throughout treatment session. Gait: no deviation noted Stairs: asc/desc 8 recip with no HR. HR/TR: able no LOB. SLS: 10 sec. Observation: well healed. ROM: 0-125 degrees. Strength: Ankle: 5/5, Knee: 5/5, Hip: 5/5, Core: fair plus- SLR no lag. Flex: HS: moderate, Gastroc: moderate - Goals Goal 1:: Patient will be I with HEP and progression Goal Progress: Goal Met Goal 2:: Patient will asc/desc 8 stairs recip with 1 hR and good control Goal Progress: Goal Met Goal 3:: Patinet will return to all normal ADL's with no pain Goal Progress: Goal Met - Plan Plan: Discharge to I HEP- answered and pt questions - D/C Information If there are questions or concerns regarding this patient's physical therapy, please feel free to call me at [phone]. Thank you for the referral of this patient. Sincerely, Yoana Daley DPT
== END 2019-08-05 19:00 | disposition home or self-care (01) ==
LOC: PT 10:30
PROVIDERS: Family Provider Family Medicine; PCP Family Medicine; Referring Provider Orthopaedic Surgery; Visit Provider Orthopaedic Surgery
DX: M17.11 Unilateral primary osteoarthritis, right knee (principal)
CPT/HCPCS: 97110; 97116; 97162; 97164

== ENCOUNTER → 2020-05-25 09:12 | Outpatient (CLI) | payer MEDICARE, SELFPAY ==
[2019-05-16 07:43] VITALS: BMI 29.1
--- NOTE | 2020-05-25 16:12 | PFTCOMP ---
COMPLETE PULMONARY FUNCTION TEST INTERPRETATION Brief HPI: Patient is a 79 year old male, currently under the care of myself, who presents to [facility] for complete pulmonary function tests secondary to diagnosis of rheumatoid arthritis. Respiratory therapist reports good effort and reproducible results. Interpretation: Forced expiration spirometry shows no large airways obstructive ventilatory defect with an FEV1 of 113% predicted. There is no significant bronchodilator response by strict ATS criteria. Spirograms are of good quality and plateau normally. The respiratory flow volume loop shows a normal pattern. Lung volumes by body plethysmography show a normal total lung capacity at 6.14 L, 118% predicted. All other lung volumes are within normal limits. Diffusion capacity by carbon monoxide is elevated at 159% predicted. The airway resistance is normal. Compared to previous pulmonary function tests from 10/28/2016, there is been a significant improvement in total lung capacity by 15%. Impression: These pulmonary function tests are within normal limits and show improvement compared to previous study.
== END ==
PROVIDERS: PCP Family Medicine; Referring Provider Internal Medicine Critical Care Medicine; Visit Provider Internal Medicine Critical Care Medicine
DX: G47.33 Obstructive sleep apnea (adult) (pediatric) (principal); M06.9 Rheumatoid arthritis, unspecified
CPT/HCPCS: 94060; 94726; 94729

== ENCOUNTER 2020-08-27 06:41 | Outpatient (RCR) | payer MEDICARE, SELFPAY | END 2020-08-27 23:59 | LOC: IMMUN 06:41 | PROVIDERS: PCP Family Medicine; Visit Provider Family Medicine | DX: Z23 Encounter for immunization (principal) | CPT/HCPCS: 0011A; 0012A ==

== ENCOUNTER 2021-01-22 12:12 | Emergency (ER) | payer MEDICARE, SELFPAY ==
[2021-01-22 12:15] VITALS: BP 152/68; PULSE 61; RESP 16; TEMP 37; O2SAT 98; BMI 28.4
--- NOTE | 2021-01-22 12:37 | RAD_ITS ---
STUDY: X-RAY CHEST REASON FOR EXAM: Male, 80 years old. 3 month history of chest pain and arm pain. TECHNIQUE: Single AP portable view of the chest. COMPARISON: Comparison is made with prior study 09/16/2016. FINDINGS: EKG electrodes are seen. Scattered calcified granulomas. There is no demonstrated pleural abnormality. Normal size heart. Normal mediastinum and jeff. Normal visualized pulmonary arteries. There is atherosclerotic tortuosity of the aortic arch and descending thoracic aorta. There are diffuse degenerative changes of the visualized thoracic spine. Normal visualized ribs, clavicles, and shoulders. There is no demonstrated abnormality of the visualized soft tissue structures of the upper abdomen. RAD/Chest 1 View (Portable) IMPRESSION: Scattered calcified granulomas. The lungs are clear. Electronically Signed: Rafa Hart MD at 14:14 EDT , Service support ,
--- NOTE | 2021-01-22 12:37 | EKG12_ITS ---
Test Reason : UPPER EXTREMITY Blood Pressure : / mmHG Vent. Rate : 056 BPM Atrial Rate : 056 BPM P-R Int : 142 ms QRS Dur : 086 ms QT Int : 434 ms P-R-T Axes : 050 -12 037 degrees QTc Int : 418 ms Sinus bradycardia with sinus arrhythmia Possible Inferior infarct , age undetermined Abnormal ECG Confirmed by DOUGLAS BEY, JOSE L ([id number]), deputy editor in chief LESLIE BOYD ([id number]) on 01/24/2021 9:57:12 AM Referred By: HI Confirmed By:JOSE L COLE MD
[2021-01-22 13:03] LABS: Absolute Lymphocyte Count 1.21 X10^3/uL (0.83-4.51); Absolute Neutrophil Count 4.6 X10^3/uL (2.0-7.7); Basophil# 0.07 X10^3/uL; Basophil% 1.1 % (0-1); Eosinophils% 1.5 % (0-5); Hematocrit 45.7 % (40-54); Hemoglobin 15.8 g/dL (13.0-16.5); Lymphocyte # 1.21 X10^3/ul (0.83-4.51); Lymphocyte % 18.3 % (19-41); Mean Corp Hgb Conc 34.6 g/dL (32-36); Mean Corpuscular Hgb 29.6 pg (27.0-32.0); Mean Corpuscular Volume 85.7 fL (80-94); Mean Platelet Vol. 9.1 fl (6.2-12.0); Monocyte% 9.1 % (0-10); NRBC Flagged by Analyzer 0 % (0-5); Neutrophil % 69.5 % (47-70); Platelet Count 242 K/mm3 (150-450); RBC Distribution Width CV 12.8 % (11.6-14.6); RBC Distribution Width SD 39.3 fl (35.1-43.9); Red Blood Count 5.33 M/mm3 (4.6-6.2); White Blood Count 6.6 K/mm3 (4.4-11.0)
[2021-01-22] MEDS: Aspirin 81 MG TAB.CHEW 324 MG PO (13:12)
[2021-01-22 13:22] LABS: Anion Gap 4 (5-15); BUN 16 mg/dL (7-18); Calcium,Total 9.1 mg/dL (8.5-10.1); Chloride 101 mmol/L (98-107); Creatinine, Serum 0.84 mg/dL (0.70-1.30); EST Glomerular Filtration Rate 93 mL/min (>60); Est Glom Filt Rate - Afr Amer 113 mL/min (>60); Estimated Creatinine Clearance 64.35 ml/min; Glucose 186 mg/dL (74-106); Potassium 3.6 mmol/L (3.5-5.1); Sodium Level 137 mmol/L (136-145)
[2021-01-22 14:49] VITALS: BP 154/73; PULSE 46; RESP 10; O2SAT 97
[2021-01-22 15:15] LABS: Troponin-I HS 5.7 pg/mL (3.0-78.5)
--- NOTE | 2021-01-22 16:16 | EDS_ITS ---
HPI History of Present Illness HPI Narrative: Patient presents with left shoulder and left arm pain that has been getting worse over the past 3 weeks. Patient states it began his left shoulder. Patient saw his primary care physician for this. Patient was referred to a different primary care physician for OMT. Patient went there today. They noticed changes on his EKG and referred him to the emergency department. Patient also complains of paresthesias going down his left arm. Patient describes his pain is dull. Patient states the pain is localized to the left shoulder and scapular area. Patient denies any shortness of breath. Patient denies any nausea or vomiting. Chief Complaint: Upper Extremity Injury Detail of Chief Complaint: Left shoulder and arm pain Informant: patient Onset/Context/Timing Onset: Weeks (3) Context: Gradual Onset Timing: Continuous Quality of Pain: Dull Location: Left shoulder Worsened by: Nothing Relieved by: Nothing Associated Symptoms Associated Symptoms: Positive for Parasthesia; Negative for Weakness and Loss of Funtion PFSH PFSH Medical History hx melanoma Hypertension Sleep apnea Home Medications alfalfa 650 mg PO DAILY 09/16/16 [History Last Taken 09/16/16 07:00] amlodipine 5 mg PO DAILY 09/16/16 [History Last Taken 09/16/16 07:00] coenzyme Q10 50 mg PO DAILY 09/16/16 [History Last Taken 09/16/16 07:00] glucosamine [id number] 1 ea PO TID 09/16/16 [History Last Taken 09/16/16 06:00] tamsulosin 0.8 mg PO DAILY 09/16/16 [History Last Taken 09/16/16 07:00] turmeric-turmeric ext-pepper 2 ea PO DAILY 09/16/16 [History Last Taken 09/15/16 17:00] acetaminophen 650 mg PO Q6H PRN PRN #0 tab 09/18/16 [Rx Last Taken Unknown] finasteride 5 mg PO DAILY #30 tab 09/18/16 [Rx Last Taken Unknown] omega-3 fatty acids 1,000 mg capsule 1,000 mg PO DAILY 03/03/18 [History Last Taken Unknown] aspirin 81 mg tablet,delayed release 81 mg PO DAILY 05/03/18 [History Last Taken Unknown] diclofenac sodium 1 % topical gel 2 g TOPICAL ONCE PRN 05/03/18 [History Last Taken Unknown] hydrochlorothiazide 25 mg tablet 25 mg PO DAILY 05/03/18 [History Last Taken Unknown] vitamin B complex 1 tab PO DAILY 05/03/18 [History Last Taken Unknown] Allergy/AdvReac Type Severity Reaction Status Date / Time ciprofloxacin [From Cipro] Allergy Rash Verified 06/05/20 11:12 lisinopril Allergy Swelling Verified 06/05/20 11:12 metronidazole Allergy Rash Verified 06/05/20 11:12 Penicillins [PCN] Allergy Rash Verified 06/05/20 11:12 sulfamethoxazole Allergy Rash Verified 06/05/20 11:12 Family History (Updated 01/22/21 @ 16:[address] Denilson Schaeffer DO) Mother Cancer Father CAD (coronary artery disease) Brother CAD (coronary artery disease) Surgical History history of left hand surgery history of right thumb surgery history or right knee scrape Varicocele Social History Smoking Status: Former smoker second hand exposure: No alcohol intake: never substance use type: does not use what type of physical activity do you participate in: none ROS ROS ED Constitutional Constitutional ED: Denies chills or fever(s) Eyes Eyes: Denies blurry vision or change in vision ENT ENT ED: Denies rhinorrhea or sore throat Cardiovascular Cardiovascular: Reports chest pain; Denies palpitations Respiratory/Chest Respiratory/Chest: Denies cough or dyspnea Gastrointestinal Gastrointestinal: Reports nausea; Denies abdominal pain or vomiting Genitourinary Genitourinary ED: Denies dysuria or hematuria Musculoskeletal Musculoskeletal: Denies back pain or neck pain Integumentary Denies abscess or rash Neurologic Neurologic: Denies headache(s) or weakness Allergic/Immunologic Allergic/Immunologic ED: Denies mouth swelling or urticaria EXAM Physical Exam Const Vital Signs: 01/22/21 12:15 01/22/21 13:06 01/22/21 14:49 Temperature 98.6 F Temperature Source Oral Pulse Rate 61 46 L Respiratory Rate 16 10 L Blood Pressure 152/68 H 154/73 H Blood Pressure Mean 96 100 Pulse Ox 98 97 Oxygen Delivery Method Room Air Room Air Room Air Positive well nourished and well developed General Appearance ED: well developed HEENT Reports moist mucous membranes Neck supple and no JVD Resp normal respiratory effort and clear to auscultation bilaterally Cardio regular rate, regular rhythm and no murmurs GI normal to inspection, nondistended, normoactive bowel sounds and non-tender Palpation: soft Extremity normal to inspection General Extremety ED: Negative for edema or tenderness General Extremity: Negative for edema Neuro oriented x3, CN's II-XII intact bilaterally and no sensory deficits noted Sensorium / Orientation: alert Motor Exam: strength 5/5 throughout Psych mental status grossly normal Skin no rashes or lesions noted MDM MDM MDM Narrative Medical decision making narrative: EKG was obtained. On my interpretation, it showed a normal sinus rhythm with a rate of 56. OR interval, QRS interval, and QTc intervals were all normal. [place] was normal. There are no acute ST or T wave changes. Portable 1 view chest x-ray was obtained. On my interpretation, lung juarez show scattered calcified granulomas. There is normal cardiac silhouette. Bony thorax is normal. There is no acute process noted. Radiologist also interpreted the x-ray and agrees. CBC and basic metabolic profile were obtained and were within normal limits. High-sensitivity troponin was normal at 5.0. 2-hour repeat high-sensitivity troponin was 5.7. Patient was given baby aspirin here. Patient is feeling better on reevaluation. Patient was advised of the findings. Patient was advised that he is low risk for acute cardiac event. Patient was instructed to follow-up with his primary care physician in 5 to 7 days. Patient understood and was agreeable with the plan. All questions were answered. Lab Data Attestation: I reviewed the patient's lab results. Labs: Laboratory Results - last 24 hr 01/22/21 01/22/21 01/22/21 12:52 12:52 14:45 WBC 6.6 RBC 5.33 Hgb 15.8 Hct 45.7 MCV 85.7 MCH 29.6 MCHC 34.6 RDW Std Deviation 39.3 RDW Coeff of [place] 12.8 Plt Count 242 MPV 9.1 Immature Gran % (Auto) 0.500 Neut % (Auto) 69.5 Lymph % (Auto) 18.3 L [place] % (Auto) 9.1 Eos % (Auto) 1.5 Baso % (Auto) 1.1 H Absolute Neuts (auto) 4.6 Absolute Lymphs (auto) 1.21 Nucleated RBC % 0 Sodium 137 Potassium 3.6 Chloride 101 Carbon Dioxide 32.0 Anion Gap 4 L BUN 16 Creatinine 0.84 Estim Creat Clear Calc 64.35 Est GFR (MDRD) Af Amer 113 Est GFR (MDRD) Non-Af 93 BUN/Creatinine Ratio 19.0 Glucose 186 H Calcium 9.1 Troponin I High Sens 5.0 5.7 Radiography Diagnostic Testing: Radiology Impression Chest X-Ray 01/22/21 12:37 IMPRESSION: Scattered calcified granulomas. The lungs are clear. Electronically Signed: Rafa Hart MD at 14:14 EDT , Service support , EKG Initial EKG: Attestation: I personally reviewed and interpreted this EKG as follows: Interpretation: No Acute Injury Pattern and Sinus Bradycardia (56) Prior EKG tracings: available for review Prior: Unchanged (09/17/2016) Discharge Plan Triage Chief Complaint: Upper Extremity Injury ED Provider: Denilson Schaeffer Dx/Rx/DC Orders Clinical Impression: Left arm pain Instructions: ED Pain, Acute, Uncertain Cause Prescriptions: No Action vitamin B complex [B Complex 1] tablet 1 tab PO DAILY RF: 0 hydrochlorothiazide 25 mg tablet 25 mg PO DAILY RF: 0 diclofenac sodium [Voltaren] 1 % gel 2 g TOPICAL ONCE PRNRF: 0 aspirin [Adult Aspirin Regimen] 81 mg tablet,delayed release (DR/EC) 81 mg PO DAILY RF: 0 omega-3 fatty acids 1,000 mg capsule 1,000 mg PO DAILY RF: 0 amlodipine 5 MG tablet 5 mg PO DAILY RF: 0 tamsulosin 0.4 MG capsule 0.8 mg PO DAILY RF: 0 alfalfa 650 MG tablet 650 mg PO DAILY RF: 0 coenzyme Q10 50 MG tablet,chewable 50 mg PO DAILY RF: 0 glucosamine [id number] 1 EACH tablet 1 ea PO TID RF: 0 turmeric-turmeric ext-pepper 1 EACH capsule 2 ea PO DAILY RF: 0 acetaminophen 325 MG tablet 650 mg PO Q6H PRN PRN (Reason: Mild Pain (scale 0-3)/T>100.7) Qty: 0 RF: 0 finasteride 5 MG tablet 5 mg PO DAILY Qty: 30 RF: 0 Primary Care Provider: Chu Oreilly Referrals: Earnest Black DO [NON-STAFF] - 5-7 Days Chu Oreilly MD [Primary Care Provider] - 5-7 Days Disposition Disposition: Home, Self Care Discharge Date/Time: 01/22/21 16:37
[2021-01-22 16:31] VITALS: BP 161/84; PULSE 61; RESP 15; O2SAT 97
== END 2021-01-22 16:37 | disposition home or self-care (01) ==
PROVIDERS: Emergency Provider Emergency Medicine; PCP Family Medicine
DX: M79.602 Pain in left arm (principal); M25.512 Pain in left shoulder; R20.2 Paresthesia of skin; Z87.891 Personal history of nicotine dependence
CPT/HCPCS: 71045; 80048; 84484; 85025; 93005; 99284; A4216

== ENCOUNTER → 2021-04-09 13:45 | Outpatient (CLI) | payer MEDICARE, SELFPAY ==
--- NOTE | 2021-04-09 13:46 | ECHOD_ITS ---
Reason For Study: ARRHYTHMIA Procedure This was a 2D Doppler, Color Flow transthoracic echocardiogram. Exam performed in department. Left Ventricle Normal LV size. Left ventricular systolic function is normal. The estimated ejection fraction is 60 %. Stage 1 diastolic dysfunction. No regional wall motion abnormalities noted. Right Ventricle Normal RV size. Normal systolic function. Atria Normal left atrium. Normal right atrium. Mitral Valve Normal mitral valve. Tricuspid Valve Normal tricuspid valve. Mild (1+) tricuspid valve insufficiency. Pulmonary artery systolic pressure is 40 mmHg. Aortic Valve The aortic valve is not well visualized. Pulmonic Valve Normal pulmonic valve. Great Vessels Normal aortic root. The pulmonary artery is normal size. Normal inferior vena cava. Pericardium/Pleural No pericardial effusion. MMode/2D Measurements & Calculations LVIDd: 5.6 cm IVSd: 0.82 cm Ao root diam: 3.2 cm LVIDs: 3.2 cm LVPWd: 1.1 cm RVDd: 3.3 cm FS: 43.1 % LAV(MOD-bp): 55.5 ml LA A4 area: 18.0 cm2 LA dimension(2D): 4.1 cm LAV(MOD-bp) Indexed: 30.1 ml/m2 LAV(MOD-sp2): 60.9 ml LAV(MOD-sp4): 48.5 ml RA A4 area: 17.1 cm2 Time Measurements MV dec time: 0.23 sec Doppler Measurements & Calculations MV E max jair: 94.5 cm/sec Lat Peak E' Jair: 8.3 cm/sec Med Peak E' Jair: 13.1 cm/sec MV A max jair: 110.5 cm/sec E/E' lat: 11.4 E/E' med: 7.2 MV E/A: 0.86 Ao V2 max: 138.3 cm/sec LV V1 max: 127.4 cm/sec PA V2 max: 103.2 cm/sec Ao max P.7 mmHg LV V1 max P.5 mmHg TR max jair: 295.9 cm/sec TR max P.0 mmHg ECHO/Echo Complete Interpretation Summary Normal LV size. Left ventricular systolic function is normal. The estimated ejection fraction is 60 %. Stage 1 diastolic dysfunction. Pulmonary artery systolic pressure is 40 mmHg. Ordering Physician: Mayco Sanders Referring Physician: Chu Oreilly Performed By: Tram Jolly RDCS, RVT
== END ==
LOC: CVS 13:46
PROVIDERS: PCP Family Medicine; Referring Provider Internal Medicine Cardiovascular Disease; Visit Provider Internal Medicine Cardiovascular Disease
DX: G47.33 Obstructive sleep apnea (adult) (pediatric) (principal)
CPT/HCPCS: 93306

== ENCOUNTER 2021-10-24 10:03 | Outpatient (RCR) | payer MEDICARE, SELFPAY | END 2021-10-26 23:59 | LOC: DC 10:03 | PROVIDERS: PCP Family Medicine; Referring Provider Family Medicine; Visit Provider Family Medicine | DX: E11.9 Type 2 diabetes mellitus without complications (principal) | CPT/HCPCS: G0108 ==

== ENCOUNTER 2021-11-21 14:30 | Outpatient (RCR) | payer MEDICARE, SELFPAY | END 2021-11-26 23:59 | LOC: DC 14:30 | PROVIDERS: PCP Family Medicine; Referring Provider Family Medicine; Visit Provider Family Medicine | DX: E11.9 Type 2 diabetes mellitus without complications (principal) | CPT/HCPCS: 97802; G0108 ==

== ENCOUNTER 2021-11-28 13:06 | Outpatient (RCR) | payer MEDICARE, SELFPAY | END 2021-12-26 23:59 | LOC: DC 13:06 | PROVIDERS: PCP Family Medicine; Referring Provider Family Medicine; Visit Provider Family Medicine | DX: E11.9 Type 2 diabetes mellitus without complications (principal) | CPT/HCPCS: 97803 ==

== ENCOUNTER 2021-12-31 14:46 | Outpatient (RCR) | payer MEDICARE, SELFPAY | END 2022-01-26 23:59 | LOC: DC 14:46 | PROVIDERS: PCP Family Medicine; Referring Provider Family Medicine; Visit Provider Family Medicine | DX: E11.9 Type 2 diabetes mellitus without complications (principal) | CPT/HCPCS: 97803 ==

== ENCOUNTER 2022-01-30 12:10 | Outpatient (RCR) | payer MEDICARE, SELFPAY | END 2022-02-26 23:59 | LOC: DC 12:10 | PROVIDERS: PCP Family Medicine; Referring Provider Family Medicine; Visit Provider Family Medicine | DX: E11.9 Type 2 diabetes mellitus without complications (principal) | CPT/HCPCS: G0109 ==

== ENCOUNTER 2022-02-27 16:27 | Outpatient (RCR) | payer MEDICARE, SELFPAY | END 2022-03-28 23:59 | LOC: DC 16:27 | PROVIDERS: PCP Family Medicine; Referring Provider Family Medicine; Visit Provider Family Medicine | DX: E11.9 Type 2 diabetes mellitus without complications (principal) | CPT/HCPCS: G0109 ==

== ENCOUNTER 2022-04-03 15:55 | Outpatient (RCR) | payer MEDICARE, SELFPAY | END 2022-04-28 23:59 | LOC: DC 15:55 | PROVIDERS: PCP Family Medicine; Referring Provider Family Medicine; Visit Provider Family Medicine | DX: E11.9 Type 2 diabetes mellitus without complications (principal) | CPT/HCPCS: G0109 ==

== ENCOUNTER 2022-05-15 13:30 | Outpatient (RCR) | payer MEDICARE, SELFPAY | END 2022-05-28 23:59 | LOC: DC 13:30 | PROVIDERS: PCP Family Medicine; Referring Provider Family Medicine; Visit Provider Family Medicine | DX: E11.9 Type 2 diabetes mellitus without complications (principal) | CPT/HCPCS: 97803; G0109 ==

== ENCOUNTER → 2022-10-13 | Outpatient (CLI) | payer MEDICARE, SELFPAY ==
[2022-10-13 11:30] LABS: Absolute Lymphocyte Count 1.08 X10^3/uL (0.83-4.51); Basophil# 0.07 X10^3/uL; Basophil% 0.9 % (0-1); Eosinophil# 0.06 X10^3/uL; Eosinophils% 0.8 % (0-5); Hematocrit 48.7 % (40-54); Hemoglobin 16.8 g/dL (13.0-16.5); Lymphocyte # 1.08 X10^3/ul (0.83-4.51); Lymphocyte % 13.8 % (19-41); Mean Corp Hgb Conc 34.5 g/dL (32-36); Mean Corpuscular Hgb 29.7 pg (27.0-32.0); Mean Corpuscular Volume 86.2 fL (80-94); Mean Platelet Vol. 9.1 fl (6.2-12.0); Monocyte# 0.64 X10^3/uL; Monocyte% 8.2 % (0-10); NRBC Flagged by Analyzer 0 % (0-5); Neutrophil # 5.95 X10^3/uL (2.7-7.7); Platelet Count 207 K/mm3 (150-450); RBC Distribution Width CV 12.6 % (11.6-14.6); RBC Distribution Width SD 39.3 fl (35.1-43.9); Red Blood Count 5.65 M/mm3 (4.6-6.2); White Blood Count 7.8 K/mm3 (4.4-11.0)
[2022-10-13 11:58] LABS: ALB/GLOB Ratio 0.9 RATIO (0.9-2.4); AST(SGOT) 21 U/L (15-37); Alanine Aminotransfer ALT/SGPT 47 U/L (16-61); Albumin, Serum 3.4 g/dL (3.2-5.0); Alkaline Phosphatase 78 U/L (45-117); Anion Gap 0 (5-15); BUN 22 mg/dL (7-18); BUN/Creat Ratio 21.4 RATIO (10-20); Calcium,Total 9.3 mg/dL (8.5-10.1); Chloride 100 mmol/L (98-107); Creatinine, Serum 1.03 mg/dL (0.70-1.30); EST Glomerular Filtration Rate 74 mL/min (>60); Est Glom Filt Rate - Afr Amer 89 mL/min (>60); Globulin 3.8 g/dL (2.2-4.2); Glucose 203 mg/dL (74-106); Potassium 3.3 mmol/L (3.5-5.1); Protein, Total 7.2 g/dL (6.4-8.2); Sodium Level 135 mmol/L (136-145); Uric Acid 4.8 mg/dL (3.5-7.2)
[2022-10-13 11:59] LABS: Vitamin D,25 Hydroxy 16.1 ng/mL
== END | disposition home or self-care (01) ==
LOC: LAB 11:11
PROVIDERS: PCP Family Medicine; Referring Provider Podiatrist; Visit Provider Podiatrist
DX: M79.671 Pain in right foot (principal)
CPT/HCPCS: 36415; 80053; 82306; 84550; 85025

== ENCOUNTER 2023-10-22 17:30 | Outpatient (RCR) | payer SELFPAY | END 2023-10-27 23:59 | LOC: NS 17:30 | PROVIDERS: PCP Family Medicine | DX: Z71.3 Dietary counseling and surveillance (principal) ==

== ENCOUNTER 2024-02-01 12:08 | Outpatient (RCR) | payer SELFPAY | END 2024-02-27 23:59 | LOC: NS 12:08 | PROVIDERS: PCP Family Medicine | DX: Z71.3 Dietary counseling and surveillance (principal) ==